=== PATIENT | female | born 1975 | race Hispanic/Latino ===

== ENCOUNTER 2018-08-07 11:44 | Emergency (ER) | payer SELFPAY ==
[2018-08-07] MEDS ORDERED: NA CHLORIDE 0.9% 1,000 ML ONE (12:20)
[2018-08-07] MEDS ORDERED: ONDANSETRON 4 MG/2 ML VIAL ONE (12:20)
[2018-08-07] MEDS ORDERED: MEPERIDINE HCL 50 MG/ML AMP ONE (12:20)
[2018-08-07 12:24] LABS: Absolute Lymphocytes (CBC) 1.3 K/uL (0.7-4.9); Absolute Monocytes 0.3 K/uL (0.1-1.3); Absolute Neutrophil 9.7 K/uL (1.8-8.0); Basophils % 0.5 % (0-1.3); Eosinophils % 1.3 % (0-4.4); Hematocrit 36.4 % (36.0-45.0); Lymphocytes % 11.7 % (15.3-44.8); MPV 9.4 fL (7.6-11.3); Monocytes % 2.2 % (3.3-12.3); RBC Red Blood Cell Count 5.12 M/uL (3.86-4.86)
[2018-08-07 12:43] LABS: ALT/SGPT 21 U/L (12-78); AST/SGOT 18 U/L (15-37); Albumin 3.8 g/dL (3.4-5.0); Alkaline Phosphatase 66 U/L (45-117); BUN Blood Urea Nitrogen 10 mg/dL (7-18); Bicarbonate 27 mmol/L (21-32); Bilirubin Direct 0.1 mg/dL (0-0.2); Bilirubin Total 0.6 mg/dL (0.2-1.0); Glucose Level 111 mg/dL (74-106); Lipase 172 U/L (73-393); Potassium 3.4 mmol/L (3.5-5.1); Protein, Total 8.1 g/dL (6.4-8.2); Sodium Level 142 mmol/L (136-145); Troponin (Emerg Dept Use Only) < 0.02 ng/mL (0.0-0.045)
[2018-08-07] MEDS ORDERED: ACETAMINOPHEN 500 MG TAB ONE (12:44)
--- NOTE | 2018-08-07 13:39 | RAD REPORT ---
EXAM DESCRIPTION: US - Abdomen Exam Limited - 08/07/2018 12:40 pm CLINICAL HISTORY: Abdominal pain. COMPARISON: None. FINDINGS: The gallbladder wall is not thickened. A gallstone is not seen. The biliary tree is normal caliber. IMPRESSION: Unremarkable gallbladder ultrasound.
--- NOTE | 2018-08-07 13:39 | RAD REPORT ---
EXAM DESCRIPTION: CT - Angio Aorta For Dissection - 08/07/2018 1:17 pm CLINICAL HISTORY: . Chest and pain COMPARISON: April [address] abdomen TECHNIQUE: Computed tomography angiography of the chest, abdomen pelvis were obtained. 100 cc Isovue 370 was administered intravenously. Coronal and sagittal reconstruction were performed. MIP 3D reconstruction was performed All CT scans are performed using dose optimization technique as appropriate and may include automated exposure control or mA/KV adjustment according to patient size. FINDINGS: An aortic dissection is not seen. An aortic aneurysm is not displayed. The celiac, SMA and ÁNGEL are patent . Mild alveolar opacities right upper lobe and right middle lobe. Moderate alveolar opacities right low er lobe. Marked distention of the esophagus. Eight and is present within the stomach. It is malpositioned infe riorly within the stomach. Marked dilatation of the gastric pouch measures 9 centimeters. A pericardial effusion is not seen. A pleural effusion is not noted. The liver,spleen, pancreas adrenals kidneys demonstrate no significant abnormality. The appendix is normal. There no evidence diverticulitis. No ascites is noted. IMPRESSION: Negative for an aortic dissection. Marked dilatation of the esophagus which is fluid-filled. Malposition of a gastric band [id number] alveolar opacities within the right lung may indicate aspiration pneumonia
--- NOTE | 2018-08-07 13:40 | RAD REPORT ---
EXAM DESCRIPTION: Vane Single View08/07/2018 12:48 pm CLINICAL HISTORY: Chest pain COMPARISON: April 2017 FINDINGS: Mild to moderate patchy right lung opacities. Left lung appears clear. Of acute infiltrate. The heart is normal size IMPRESSION: [id number] right aspiration pneumonia
[2018-08-07] MEDS ORDERED: PIPER/TAZO/NS 3.375gm 3.375 GM/100 ML BAG ONE (14:23)
--- NOTE | 2018-08-07 15:15 | ER ---
Nurse's Notes [facility] Name: Sarah Melvin Age: 43 yrs Sex: Female : 1975 Arrival Date: 08/07/2018 Time: 11:48 Bed 14 Private MD: None, None Diagnosis: Gastric obstruction as complication of Lap-Band;Aspiration Pneumonia;Dehydration Presentation: 08/07 11:52 Presenting complaint: Patient states: i just woke up today and i feel this pressure on tw2 my chest and the pain radiates into my arms and down into my legs, i had a lap band 7 years ago and i have had a lot of problems with it, i havent had it filled in years, so there should be nothing in it, i cant keep food down, i am nauseous family member states "yesterday she told me she felt like her stomach was on fire and she takes a LOT of tums i mean a lot of them all the time.". Transition of care: patient was not received from another setting of care. Onset of symptoms was August 07, 2018. Risk Assessment: Do you want to hurt yourself or someone else? Patient reports no desire to harm self or others. Initial Sepsis Screen: Does the patient meet any 2 criteria? No. Patient's initial sepsis screen is negative. Does the patient have a suspected source of infection? No. Patient's initial sepsis screen is negative. Care prior to arrival: None. 11:52 Method Of Arrival: Wheelchair tw2 11:52 Acuity: SILVIA 2 tw2 Triage Assessment: 11:55 General: Appears uncomfortable, Behavior is anxious, crying. Pain: Complains of pain in tw2 chest. Respiratory: Reports shortness of breath at rest Airway is patent Respiratory effort is even, unlabored, Respiratory pattern is hyperventilation Onset: The symptoms/episode began/occurred this morning, the patient has moderate shortness of breath. Historical: - Allergies: 11:58 Ibuprofen; tw2 - Home Meds: 11:58 Multiple Vitamins oral tab [Active]; Tums 300 mg (750 mg) Oral chew [Active]; tw2 - PMHx: 11:58 None; tw2 - PSHx: 11:58 tummy tuck; lap band; ankle surgery; Hysterectomy; arm lift; tw2 - Immunization history:: Adult Immunizations. - Social history:: Smoking status: . - Ebola Screening: : Patient denies travel to an Ebola-affected area in the 21 days before illness onset. - Family history:: not pertinent. - Hospitalizations: : No recent hospitalization is reported. Screenin:13 Abuse screen: Denies threats or abuse. Nutritional screening: No deficits noted. la1 Tuberculosis screening: No symptoms or risk factors identified. Fall Risk None identified. Assessment: 12:12 General: Appears in no apparent distress. Behavior is anxious, crying, restless. Pain: la1 Complains of pain in back, chest and abdomen. Neuro: Level of Consciousness is awake, alert, obeys commands, confused, Oriented to person, place, time, situation. Cardiovascular: Capillary refill < 3 seconds Patient's skin is warm and dry. Cardiovascular: Rhythm is sinus tachycardia. Respiratory: Airway is patent Breath sounds are clear bilaterally. 13:02 General: Appears in no apparent distress. Behavior is calm, cooperative. Respiratory: la1 Airway is patent Respiratory effort is even, unlabored, Respiratory pattern is regular, symmetrical, Breath sounds are clear. 14:15 Reassessment: Patient appears in no apparent distress at this time. No changes from la1 previously documented assessment. Patient and/or family updated on plan of care and expected duration. Pain level reassessed. Patient is alert, oriented x 3, equal unlabored respirations, skin warm/dry/pink. 15:18 Reassessment: Patient appears in no apparent distress at this time. No changes from la1 previously documented assessment. Patient and/or family updated on plan of care and expected duration. Pain level reassessed. Patient is alert, oriented x 3, equal unlabored respirations, skin warm/dry/pink. Vital Signs: 11:55 BP 143 / 83; Pulse 125; Resp 24; Temp 98.6(O); Pulse Ox 98% on R/A; Weight 89.36 kg tw2 (R); Height 5 ft. 10 in. (177.80 cm) (R); Pain 10/10; 12:45 BP 124 / 73; Pulse 110; Resp 20; Temp 101.2; Pulse Ox 98% on R/A; la1 14:03 BP 140 / 90; Pulse 101; Resp 18; Pulse Ox 98% on R/A; la1 14:17 BP 113 / 83; Pulse 99; Resp 16; Temp 99.3; Pulse Ox 98% on R/A; la1 15:15 BP 116 / 74; Pulse 85; Resp 16; Pulse Ox 98% on R/A; la1 11:55 Body Mass Index 28.27 (89.36 kg, 177.80 cm) tw2 ED Course: 11:48 Patient arrived in ED. dp 11:48 Esme Pimentel MD is Private Physician. dp 11:49 None, None is Private Physician. dp 11:52 Fermin Salamanca MD is Attending Physician. rn 11:54 Triage completed. tw2 11:54 Arm band placed on. EKG completed in triage. Results shown to MD. tw2 12:00 EKG done, by ED staff, reviewed by Fermin Salamanca MD. jb1 12:12 Brandon Dhillon RN is Primary Nurse. la1 12:13 Call light in reach. Side rails up X 1. la1 12:16 Radiology exam delayed due to lab results not completed at this time. (BUN/Creatinine). mw3 12:31 Flu and/or RSV swab sent to lab. ms 12:39 US Abdomen Limited In Process Unspecified. EDMS 12:43 Primary Nurse role handed off by Brandon Dhillon RN la1 12:45 Brandon Dhillon RN is Primary Nurse. la1 12:49 XRAY Chest (1 view) In Process Unspecified. EDMS 13:18 CT completed. Patient tolerated procedure well. Patient moved back from CT. ls3 13:20 CT Aorta for Dissection In Process Unspecified. EDMS 14:07 initiated a transfer with Domi at the [facility]. eb 15:09 connected the bariatric doctor shoe ironer for [facility] with Dr. Salamanca for patient eb transfer consultation. 15:[address] Vu the hospitalist shoe ironer for [facility] with Dr. Salamanca for eb patient transfer consultation. 16:10 administrative approval given by Corinne Zhang at the [facility]/ eb Patient has been accepted to the [facility] bed [address] Vu/ report to be called to [phone]. 17:19 No provider procedures requiring assistance completed. Patient transferred, IV remains la1 in place. Administered Medications: 12:12 Drug: NS 0.9% 1000 ml Route: IV; Rate: 1000 ml; Site: right antecubital; la1 14:00 Follow up: IV Status: Completed infusion; IV Intake: 1000ml la1 12:12 Drug: Demerol 50 mg Route: IVP; Site: right antecubital; la1 14:02 Follow up: Response: No adverse reaction; Pain is decreased la1 12:12 Drug: Zofran 4 mg Route: IVP; Site: right antecubital; la1 14:02 Follow up: Response: No adverse reaction la1 12:35 Drug: Tylenol 1000 mg Route: PO; la1 14:02 Follow up: Response: No adverse reaction la1 14:17 Drug: Zosyn 3.375 grams Route: IVPB; Infused Over: 60 mins; Site: right antecubital; la1 15:18 Follow up: IV Status: Completed infusion la1 17:00 Drug: Pepcid 20 mg Route: IVP; Site: right antecubital; la1 17:18 Follow up: Response: physician practice administrator at transfer. la1 Intake: 14:00 IV: 1000ml; Total: 1000ml. la1 Outcome: 15:15 ER care complete, transfer ordered by . rn 17:19 Transferred by ground EMS to [facility], Transfer form completed. la1 X-rays sent w/ patient. 17:19 Condition: stable 17:19 Instructed on the need for transfer. 17:20 Patient left the ED. la1 Signatures: Dispatcher [employer] EDCk Broderick Maria ms Nieto, Roman, MD MD rn Attema, LAMONT Taylor RN [email or web address] Brigid Vanegas RN RN nacho2 Griselda De Leon Michelle mw3 Gisela Hernández ls3 Klaus Scott
--- NOTE | 2018-08-07 15:15 | EDPHYS ---
Physician Documentation [facility] Name: Sarah Melvin Age: 43 yrs Sex: Female : 1975 Arrival Date: 08/07/2018 Time: 11:48 Bed 14 Private MD: None, None ED Physician Fermin Salamanca HPI: 08/07 12:17 This 43 yrs old Female presents to ER via Wheelchair with complaints of rn Hyperventilation, Chest Pain, abdominal pain. 12:17 The patient presents with abdominal pain that is diffuse. Onset: The symptoms/episode rn began/occurred 3 day(s) ago. The symptoms radiate to back and chest. 12:18 Associated signs and symptoms: Pertinent positives: nausea and vomiting, chest pain, rn Pertinent negatives: blood in stools, diarrhea, dysuria, fever, hematuria. The symptoms are described as intermittent, sharp. Modifying factors: The symptoms are alleviated by nothing, the symptoms are aggravated by touching the area. Severity of pain: At its worst the pain was moderate in the emergency department the pain is unchanged. The patient has experienced similar episodes in the past. Reports abd pain and vomiting for 3 days, vomited approx 25 times, not able to keep anything down including fluids, now having chest pain, also intermittent, no hx of [place], no fever, no blood in emesis or stool, no trauma. Has had tummy tuck and lap band but lap band has had all fluid removed. . Historical: - Allergies: 11:58 Ibuprofen; tw2 - Home Meds: 11:58 Multiple Vitamins oral tab [Active]; Tums 300 mg (750 mg) Oral chew [Active]; tw2 - PMHx: 11:58 None; tw2 - PSHx: 11:58 tummy tuck; lap band; ankle surgery; Hysterectomy; arm lift; tw2 - Immunization history:: Adult Immunizations. - Social history:: Smoking status: . - Ebola Screening: : Patient denies travel to an Ebola-affected area in the 21 days before illness onset. - Family history:: not pertinent. - Hospitalizations: : No recent hospitalization is reported. ROS: 12:18 Constitutional: Negative for fever, chills, and weight loss, Eyes: Negative for injury, rn pain, redness, and discharge, Neck: Negative for injury, pain, and swelling, Cardiovascular: Negative for edema Respiratory: Negative for cough, wheezing, and pleuritic chest pain, Abdomen/GI: Negative for diarrhea, and constipation, MS/Extremity: Negative for injury and deformity, Skin: Negative for injury, rash, and discoloration, Neuro: Negative for headache, numbness, tingling, and seizure, + generalized weakness Exam: 12:18 Constitutional: This is a well developed, well nourished patient who is awake, alert, rn hyperventilating and tearful. Head/Face: Normocephalic, atraumatic. ENT: dry MM Neck: Trachea midline, no thyromegaly or masses palpated, and no cervical lymphadenopathy. Supple, full range of motion without nuchal rigidity, or vertebral point tenderness. No Meningismus. Cardiovascular: tachycardic, regular, no murmur Respiratory: Hyperventilating, clear bilaterally otherwise Abdomen/GI: soft, + tender in all quadrants, no masses, worse in periumbilical region MS/ Extremity: Pulses equal, no cyanosis. Neurovascular intact. Full, normal range of motion. Equal circumference. Neuro: Awake and alert, GCS 15, oriented to person, place, time, and situation. Cranial nerves II-XII grossly intact. Motor strength 5/5 in all extremities. Sensory grossly intact. 12:28 ECG was reviewed by the Attending Physician. rn Vital Signs: 11:55 BP 143 / 83; Pulse 125; Resp 24; Temp 98.6(O); Pulse Ox 98% on R/A; Weight 89.36 kg tw2 (R); Height 5 ft. 10 in. (177.80 cm) (R); Pain 10/10; 12:45 BP 124 / 73; Pulse 110; Resp 20; Temp 101.2; Pulse Ox 98% on R/A; la1 14:03 BP 140 / 90; Pulse 101; Resp 18; Pulse Ox 98% on R/A; la1 14:17 BP 113 / 83; Pulse 99; Resp 16; Temp 99.3; Pulse Ox 98% on R/A; la1 15:15 BP 116 / 74; Pulse 85; Resp 16; Pulse Ox 98% on R/A; la1 11:55 Body Mass Index 28.27 (89.36 kg, 177.80 cm) tw2 MDM: 11:52 Patient medically screened. rn 15:12 Differential diagnosis: bowel obstruction, cholecystitis, Cholelithiasis, gastritis, rn gastroesophageal reflux disease, aspiration pneumonia, gastric obstruction. Data reviewed: vital signs, nurses notes, lab test result(s), radiologic studies, CT scan, plain films, and as a result, I will admit patient. Counseling: I had a detailed discussion with the patient and/or guardian regarding: the historical points, exam findings, and any diagnostic results supporting the discharge/admit diagnosis, lab results, radiology results, the need for further work-up and treatment in the hospital, the need to transfer to another facility, for higher level of care, [facility] does not immediately have the required specialist. Response to treatment: the patient's symptoms have markedly improved after treatment, and as a result, I will admit patient. ED course: Pt accepted for transfer to [facility] for bariatric surgery given gastric obstruction from lap band as well as aspiration pneumonia. . 08/07 12:02 Order name: Basic Metabolic Panel rn 08/07 12:02 Order name: CBC with Diff; Complete Time: 12:46 rn 08 12:02 Order name: Hepatic Function; Complete Time: 12:46 rn 08 12:02 Order name: Lipase; Complete Time: 12:46 rn 08 12:02 Order name: Troponin (emerg Dept Use Only); Complete Time: 12:46 rn 08 12:02 Order name: Creatinine for Radiology; Complete Time: 12:46 rn 08 12:02 Order name: XRAY Chest (1 view); Complete Time: 13:47 rn 08 12:02 Order name: CT Aorta for Dissection; Complete Time: 13:47 rn 08 12:02 Order name: US Abdomen Limited; Complete Time: 13:47 rn 08 12:03 Order name: Basic Metabolic Panel; Complete Time: 12:46 EDMS 08/07 12:24 Order name: Flu; Complete Time: 12:55 rn 08 13:51 Order name: Blood Culture Adult (2) rn 08/07 13:51 Order name: Lactate; Complete Time: 14:37 rn /08 12:02 Order name: IV Saline Lock; Complete Time: 12:12 rn 08 12:02 Order name: Labs collected and sent; Complete Time: 12:12 rn 08 12:02 Order name: EKG; Complete Time: 12:03 rn 08/07 12:02 Order name: EKG - Nurse/Tech; Complete Time: 12:12 rn EC:28 Rate is 134 beats/min. Rhythm is regular. QRS [place] is Normal. [place] interval is normal. rn QRS interval is normal. QT interval is normal. No Q waves. T waves are Normal. No ST changes noted. Clinical impression: Sinus tachycardia. Interpreted by me. Reviewed by me. Administered Medications: 12:12 Drug: NS 0.9% 1000 ml Route: IV; Rate: 1000 ml; Site: right antecubital; la1 14:00 Follow up: IV Status: Completed infusion; IV Intake: 1000ml la1 12:12 Drug: Demerol 50 mg Route: IVP; Site: right antecubital; la1 14:02 Follow up: Response: No adverse reaction; Pain is decreased la1 12:12 Drug: Zofran 4 mg Route: IVP; Site: right antecubital; la1 14:02 Follow up: Response: No adverse reaction la1 12:35 Drug: Tylenol 1000 mg Route: PO; la1 14:02 Follow up: Response: No adverse reaction la1 14:17 Drug: Zosyn 3.375 grams Route: IVPB; Infused Over: 60 mins; Site: right antecubital; la1 15:18 Follow up: IV Status: Completed infusion la1 17:00 Drug: Pepcid 20 mg Route: IVP; Site: right antecubital; la1 17:18 Follow up: Response: senior storage administrator at transfer. la1 Disposition: 08/07/18 15:15 Transfer ordered to [facility]. Diagnosis are Gastric obstruction as complication of Lap-Band, Aspiration Pneumonia, Dehydration. - Reason for transfer: Higher level of care. - Accepting physician is Dr. Vu. - Condition is Stable. - Problem is new. - Symptoms have improved. Signatures: Dispatcher [employer] EDMS Fermin Salamanca MD MD rn Attema, Lee, RN RN la1 Brigid Vanegas RN RN tw2 Corrections: (The following items were deleted from the chart) 12:27 12:18 Constitutional: This is a well developed, well nourished patient who is awake, rn alert, hyperventilating and tearful. rn 15:19 15:15 08/07/2018 15:15 Transfer ordered to [facility]. Diagnosis is rn Gastric obstruction as complication of Lap-Band; Aspiration Pneumonia; Dehydration. Reason for transfer: Higher level of care. Accepting physician is . Condition is Stable. Problem is new. Symptoms have improved. rn 17:20 15:19 08/07/2018 15:15 Transfer ordered to [facility]. Diagnosis is la1 Gastric obstruction as complication of Lap-Band; Aspiration Pneumonia; Dehydration. Reason for transfer: Higher level of care. Accepting physician is Dr. Vu. Condition is Stable. Problem is new. Symptoms have improved. rn
[2018-08-07] MEDS ORDERED: FAMOTIDINE 20 MG/2 ML VIAL IV ONE (17:20)
[2018-08-07 17:34] VITALS: O2SAT 98
[2018-08-07 17:38] VITALS: TEMP 99.3
[2018-08-07 17:39] VITALS: BP 116/74
--- NOTE | 2018-08-08 07:56 | EKG ---
Test Date: 2018-08-07 Test Time: 11:56:03 Naphthalene Still Operator: HOWARD MEASUREMENT RESULTS: Intervals: Rate: 134 MN: 132 QRSD: 86 QT: 346 QTc: 516 [place]: P: 42 MN: 132 QRS: 18 T: 54 INTERPRETIVE STATEMENTS: Sinus tachycardia with fusion complexes Nonspecific T wave abnormality Abnormal ECG Compared to ECG 05/11/2017 07:39:11 Fusion complex(es) now present T-wave abnormality now present Sinus rhythm no longer present Sinus arrhythmia no longer present Electronically Signed On 08-08-18 07:53:04 CDT by Tarik Theodore
== END 2018-08-07 17:20 | disposition short-term general hospital (02) ==
LOC: ER 11:44
DX: K95.09 Other complications of gastric band procedure (principal); J69.0 Pneumonitis due to inhalation of food and vomit; E86.0 Dehydration
CPT/HCPCS: 36415; 71045; 71275; 74175; 76705; 80048; 80076; 83605; 83690; 84484; 85025; 87040; 87804; 93005; 96361; 96365; 96375; 99285; J2175; J2405; J2543; J7030; Q9967